=== PATIENT | female | born 1985 | race Caucasian/White ===

== ENCOUNTER 2018-12-03 16:32 | Emergency (ER) | payer BC ==
[~2018-12-03] VITALS: Ht 170.2 cm; Wt 68.0 kg
--- NOTE | 2018-12-03 17:09 | NUR ---
PATIENT HERE FOR C/O WRSIT PAIN. STATES SHE IS "HUNGOVER" AND FELL BECAUSE SHE LOST HER BALANCE. SHE HURT HER WRIST.
--- NOTE | 2018-12-03 17:43 | NUR ---
DC, RX (INCLUDING PERCOCET PRECAUTIONS) AND FOLLOW UP INSTRUCTIONS GIVEN AND EXPLAINED TO PATIENT WHO STATES SHE UNDERSTANDS ALL INSTRUCTIONS.
== END 2018-12-03 17:44 | disposition home or self-care (01) ==
LOC: ER 16:34
DX: S52.502A Unspecified fracture of the lower end of left radius, initial encounter for closed fracture (principal); W18.30XA Fall on same level, unspecified, initial encounter; Y93.89 Activity, other specified; Y92.89 Other specified places as the place of occurrence of the external cause; Y99.8 Other external cause status
CPT/HCPCS: 73110; A4663